=== PATIENT | female | born 1975 | race Caucasian/White ===

== ENCOUNTER 2023-11-02 20:04 | Emergency (ER) | payer SELFPAY ==
[~2023-11-02] VITALS: Ht 160 cm; Wt 70.0 kg
[2023-11-02 20:31] VITALS: BP 129/74
[2023-11-02 21:15] LABS: BASO% 0.1 % (0-3); EOS% 0.4 % (0-8); HEMOGLOBIN 12.2 g/dl (12.0-16.0); IMMATURE GRANULOCYTES 0.7 % (0.0-5.0); LYMPH% 10.6 % (15-41); MEAN CELL VOLUME 87.1 fL CALC (80.0-100.0); MEAN CORPUSCULAR HGB 27.2 pG CALC (26.0-32.0); MEAN CORPUSCULAR HGB CONC 31.3 g/dL CAL (32.0-36.0); MONO% 9.6 % (2-13); NEUT# 13.35 thou/uL (2.00-7.15); NEUT% 78.6 % (42-76); RED BLOOD COUNT 4.48 mill/uL (4.20-5.60); RED CELL DISTRI WIDTH 15.1 % (11.5-15.5)
[2023-11-02] MEDS ORDERED: VIBRAMYCIN100 M2 PO (22:11)
[2023-11-02] MEDS ORDERED: VENTOLIN HFA IN (22:11)
[2023-11-02 23:21] VITALS: BP 115/75
== END 2023-11-02 23:21 | disposition home or self-care (01) | DRG 195 ==
LOC: ED 20:04
PROVIDERS: Family Medicine
DX: J18.9 Pneumonia, unspecified organism (principal); J45.909 Unspecified asthma, uncomplicated; F17.210 Nicotine dependence, cigarettes, uncomplicated